=== PATIENT | male | born 1990 | race Caucasian/White ===

== ENCOUNTER 2018-05-28 09:07 | Emergency (ER) | payer MEDICAID ==
--- NOTE | 2018-05-28 09:27 | EDPHY ---
H & P Time Seen by Provider: 05/28/18 09:17 HPI/ROS: CHIEF COMPLAINT: Medical clearance for long-term HISTORY OF PRESENT ILLNESS: 28-year-old male presents to the emergency department by ambulance for medical clearance for long-term. The patient admits to using methamphetamine and cocaine. He states he does not know when that he last used this. The police found him in the basement in a crawl space of a business. It is not clear how long he had been there. No reported trauma or fall. The patient currently has no complaints other than he feels very thirsty and wants some water. He denies pain in his chest or difficulty breathing. Denies abdominal pain. Denies vomiting or diarrhea. Denies a headache. Denies rash. Denies any other symptoms. He denies prescription medications. REVIEW OF SYSTEMS: Constitutional: No fever, no chills. Eyes: No double or blurry vision. ENT: No sore throat. Respiratory: No cough, no shortness of breath. Cardiac: No chest pain. Gastrointestinal: No abdominal pain, vomiting or diarrhea. Genitourinary: No dysuria. Musculoskeletal: No neck or back pain. Skin: No rashes. Neurological: No headache. (Aarti Montes) Past Medical/Surgical History: Substance abuse (Aarti Montes) Social History: Single, homeless (Aarti Montes) Physical Exam: General Appearance: Alert, no distress. Eyes: Pupils equal and round. Extraocular motions are all intact. ENT: Mouth: Mucous membranes very dry with dirt noted in his teeth and covering his tongue. Respiratory: No wheezing, rhonchi, or rales, lungs are clear to auscultation. Cardiovascular: Regular rate and rhythm. Gastrointestinal: Abdomen is soft and nontender, no masses, no rebound or guarding, bowel sounds normal. Neurological: Alert and oriented x 3, cranial nerves II through XII grossly intact Skin: Warm and dry, no rashes. Musculoskeletal: Nontender to palpate along the cervical, thoracic or lumbar spine. Neck is supple. Extremities: Full range of motion and no peripheral edema. Psychiatric: Patient is oriented X 3, there is no agitation. (Aarti Montes) Constitutional: Initial Vital Signs Temperature (C) 36.4 C 05/28/18 09:07 Heart Rate 88 05/28/18 09:07 Respiratory Rate 16 05/28/18 09:07 Blood Pressure 128/85 H 05/28/18 09:07 O2 Sat (%) 95 05/28/18 09:07 O2 Delivery Mode Room Air Allergies/Adverse Reactions: No Known Allergies Allergy (Unverified 05/28/18 09:19) Home Medications: Medication Instructions Recorded NK [No Known Home Meds] 05/28/18 Medical Decision Making ED Course/Re-evaluation: 28-year-old male presents to the emergency department for medical clearance for long-term. The case was discussed with Dr. Ash De Leon, secondary supervising physician, who did not directly evaluate the patient but agrees with treatment and plan. Laboratory studies reveal elevated creatinine 1.9. He received 2 L of IV normal saline. He was drinking apple juice. He was feeling much better. He was able to urinate. I did discuss the abnormal creatinine with Dr. Ash De Leon. He agrees that the patient be discharged to long-term. I encouraged the patient to return if he had any other complaints. He should follow up with primary care provider to recheck his creatinine. (Aarti Montes) Differential Diagnosis: Including but not limited to electrolyte abnormality, dehydration, substance abuse, depression (Aarti Montes) - Data Points Laboratory Results: 05/28/18 09:32 POC Hgb 13.9 gm/dL gm/dL (13.7-17.5) POC Hct 41 % % (40-51) POC Sodium 146 mEq/L H mEq/L (135-145) POC Potassium 3.3 mEq/L mEq/L (3.3-5.0) POC Chloride 108 mEq/L mEq/L (97-110) POC BUN 20 mg/dL mg/dL (7-23) POC Creatinine 1.9 mg/dL H mg/dL (0.7-1.3) POC Glucose 89 mg/dL mg/dL (70-100) Medications Given: Discontinued Medications Sodium Chloride (Ns) 1,000 mls @ 0 mls/hr IV ONCE ONE PRN Reason: Wide Open Stop: 05/28/18 09:36 Last Admin: 05/28/18 09:30 Dose: 1,000 mls Sodium Chloride (Ns) 1,000 mls @ 0 mls/hr IV ONCE ONE PRN Reason: Wide Open Stop: 05/28/18 09:37 Last Admin: 05/28/18 10:08 Dose: 1,000 mls Point of Care Test Results: Chemistry 05/28/18 09:32 POC Sodium 146 mEq/L H mEq/L (135-145) POC Potassium 3.3 mEq/L mEq/L (3.3-5.0) POC Chloride 108 mEq/L mEq/L (97-110) POC BUN 20 mg/dL mg/dL (7-23) POC Creatinine 1.9 mg/dL H mg/dL (0.7-1.3) POC Glucose 89 mg/dL mg/dL (70-100) ISTAT H&H 05/28/18 09:32 POC Hgb 13.9 gm/dL gm/dL (13.7-17.5) POC Hct 41 % % (40-51) Departure - Departure Disposition: Home, Routine, Self-Care Clinical Impression: Polysubstance abuse Condition: Good Instructions: Polysubstance Abuse (ED) Additional Instructions: You have been medically cleared for long-term. Referrals: [facility] 24 Hours [Outside] - As per Instructions
[2018-05-28] MEDS ORDERED: NS 1,000 ML IV ONE ×2 (09:35→09:36)
[2018-05-28 11:04] VITALS: BP 102/65
== END 2018-05-28 11:03 | disposition home or self-care (01) ==
DX: F19.10 Other psychoactive substance abuse, uncomplicated (principal)
CPT/HCPCS: 82435-PO; 82565-PO; 82947-PO; 84132-PO; 84295-PO; 84520-PO; 85014-PO